=== PATIENT | female | born 1980 | race Two or more races ===

== ENCOUNTER → 2023-12-17 | Outpatient (CLI) | payer BC, SELFPAY ==
[2023-12-17 08:20] LABS: Collection Type, Urine Clean Catch
[2023-12-17 08:50] LABS: Basophils % (Auto) 1 % (0-2.5); Eosinophils # (Auto) 0.1 Thou/mm3 (0.0-0.5); Eosinophils % (Auto) 1 % (0-10); Hematocrit 41.5 % (36.0-46.0); Hemoglobin 14.2 g/dL (12.0-16.0); Immature Granulocytes % (Auto) 0 % (0-0); Immature Granulocytes Auto 0.01 Thou/mm3 (0.00-0.00); Lymphocytes % (Auto) 32 % (10-50); Mean Corpuscular HGB Conc 34.2 g/dl (31.0-37.0); Mean Corpuscular Hemoglobin 31.3 pg (25.0-35.0); Mean Corpuscular Volume 92 fL (80-100); Monocytes # (Auto) 0.4 Thou/mm3 (0.0-0.8); Monocytes % (Auto) 6 % (0-12); Neutrophils # (Auto) 3.7 Thou/mm3 (1.8-7.7); Neutrophils % (Auto) 60 % (37-80); Nucleated Red Blood Cell % 0 /100 WBC (0); Platelet Count 324 Thou/mm3 (140-440); RDW Standard Deviation 41.7 fL (36.4-46.3); Red Blood Count 4.53 Miln/mm3 (4.00-5.20); White Blood Count 6.2 Thou/mm3 (3.6-11.0)
[2023-12-17 09:01] LABS: Bilirubin,Urine Negative (Negative); Blood,Urine Negative (Negative); Clarity,Urine Clear (Clear/Hazy); Color,Urine Lt-Yellow (Lt Yel-Yel); Culture Indicated,Urine Not Indicated; Glucose, Urine Negative (Negative); Ketones,Urine Negative (Negative); Leukocyte Esterase,Urine Negative (Negative); Nitrite,Urine Negative (Negative); PH,Urine 5.5 (5.0-7.0); Protein,Urine Negative (Neg - Trace); RBC,Urine 5 /hpf (0-3); Specific Gravity,Urine 1.026 (1.001-1.035); Squamous Epithelial Cell,Urine 2 /hpf (0-5); Urobilinogen,Urine Negative mg/dL (0.0-1.0); WBC,Urine 1 /hpf (0-5)
[2023-12-17 09:13] LABS: Glucose Estimated Average 137 mg/dL (80-131); Hemoglobin A1C 6.4 % Hgb (4.8-6.0)
[2023-12-17 09:31] LABS: Follicle Stimulating Hormone 3.39 mIU/mL (See Note); Vitamin B12 781 pg/mL (211-911); Vitamin D 25 Hydroxy Total 30.5 ng/mL (7.3-40.2)
[2023-12-17 09:34] LABS: Alanine Aminotransferase 23 U/L (10-49); Albumin, Serum 4.4 gm/dL (3.5-5.0); Albumin/Globulin Ratio 1.6 (1.2-2.2); Alkaline Phosphatase 71 U/L (46-116); Anion Gap 6 (7-16); Aspartate Amino Transferase 15 U/L (0-34); BUN/Creatinine Ratio 16 Ratio (12-20); Bilirubin,Total 0.5 mg/dL (0.3-1.2); Blood Urea Nitrogen 13 mg/dL (9-23); Calcium 8.9 mg/dL (8.3-10.6); Calcium (Corrected) 8.9 mg/dL (8.5-10.1); Carbon Dioxide 27.5 mMol/L (20.0-31.0); Cardiac Risk Estimate 4.3 RATIO (3.7-5.6); Chloride 104 mMol/L (98-107); Cholesterol 209 mg/dL (132-200); Creatinine (Component) 0.8 mg/dL (0.6-1.3); Globulin 2.7 gm/dL (2.3-3.5); Glucose 162 mg/dL (74-106); HDL Cholesterol 49 mg/dL (40-60); LDL Cholesterol,Calculated 132 mg/dL (0-130); Osmolality,Calculated 277 (275-295); Potassium 4.2 mMol/L (3.4-5.1); Sodium 137 mMol/L (136-145); Total Protein 7.1 gm/dL (5.7-8.2); Triglycerides 141 mg/dL (30-150); eGFR > 60 See Note
[2023-12-29 06:43] LABS: Cortisol,total,LC/MS/MS* 10.9 mcg/dL; Estradiol, Ultrasensitive* 124 pg/mL; Progesterone,LC/MS* 9.5 ng/mL
== END | disposition home or self-care (01) ==
LOC: COPL 07:29
PROVIDERS: PCP Registered Nurse; Referring Provider Registered Nurse; Visit Provider Registered Nurse
DX: R79.89 Other specified abnormal findings of blood chemistry (principal); N95.1 Menopausal and female climacteric states; Z83.3 Family history of diabetes mellitus
CPT/HCPCS: 36415; 80053; 80061; 81001; 82306; 82533; 82607; 82670; 83001; 83036; 84144; 84443; 85025

== ENCOUNTER → 2024-05-28 | Outpatient (CLI) | payer BC, MEDICAID, SELFPAY ==
[2024-05-28 08:47] LABS: Glucose Estimated Average 163 mg/dL (80-131); Hemoglobin A1C 7.3 % Hgb (4.8-6.0)
== END | disposition home or self-care (01) ==
LOC: COPL 07:20
PROVIDERS: PCP Family Medicine; Referring Provider Registered Nurse; Visit Provider Registered Nurse
DX: R73.03 Prediabetes (principal)
CPT/HCPCS: 36415; 83036

== ENCOUNTER → 2024-08-03 | Outpatient (CLI) | payer BC, MEDICAID, SELFPAY ==
[2024-08-03 16:26] LABS: Syphilis Nonreactive (Nonreactive)
[2024-08-09 06:48] LABS: HIV Ag/Ab, 4th Gen NON-REACTIVE
== END | disposition home or self-care (01) ==
PROVIDERS: PCP Physician Assistant; Referring Provider Physician Assistant; Visit Provider Physician Assistant
DX: N76.1 Subacute and chronic vaginitis (principal)
CPT/HCPCS: 36415; 86780; 87389; 87491; 87591; 87661

== ENCOUNTER → 2024-08-04 | Outpatient (CLI) | payer BC, MEDICAID, SELFPAY ==
[2024-08-04 14:25] LABS: Chlamydia trachomatis PCR Negative (Not Detect); Neisseria Gonorrhoeae DNA PCR Negative (Not Detect); Trichomonas Negative (Negative)
== END | disposition home or self-care (01) ==
LOC: SLDO 10:11
PROVIDERS: PCP Physician Assistant; Referring Provider Physician Assistant; Visit Provider Physician Assistant
DX: N76.1 Subacute and chronic vaginitis (principal)
CPT/HCPCS: 87491; 87591; 87661

== ENCOUNTER → 2024-11-12 | Outpatient (CLI) | payer BC, MEDICAID, SELFPAY ==
[2024-11-12 16:30] LABS: Basophils # (Auto) 0.0 Thou/mm3 (0.0-0.2); Basophils % (Auto) 0 % (0-2.5); Eosinophils # (Auto) 0.1 Thou/mm3 (0.0-0.5); Eosinophils % (Auto) 1 % (0-10); Hematocrit 41.3 % (36.0-46.0); Hemoglobin 14.0 g/dL (12.0-16.0); Immature Granulocytes Auto 0.02 Thou/mm3 (0.00-0.00); Lymphocytes # (Auto) 2.5 Thou/mm3 (1.0-4.8); Lymphocytes % (Auto) 28 % (10-50); Mean Corpuscular HGB Conc 33.9 g/dl (31.0-37.0); Mean Corpuscular Hemoglobin 31.1 pg (25.0-35.0); Mean Corpuscular Volume 92 fL (80-100); Monocytes # (Auto) 0.5 Thou/mm3 (0.0-0.8); Monocytes % (Auto) 5 % (0-12); Neutrophils # (Auto) 5.7 Thou/mm3 (1.8-7.7); Neutrophils % (Auto) 65 % (37-80); Nucleated Red Blood Cell # 0.00 Thou/mm3 (0.00-0.00); Nucleated Red Blood Cell % 0 /100 WBC (0); Platelet Count 337 Thou/mm3 (140-440); RDW Standard Deviation 41.8 fL (36.4-46.3); Red Blood Count 4.50 Miln/mm3 (4.00-5.20); White Blood Count 8.8 Thou/mm3 (3.6-11.0)
[2024-11-12 16:48] LABS: Urea Breath Test Positive (Negative)
[2024-11-12 16:57] LABS: Alanine Aminotransferase 19 U/L (10-49); Albumin, Serum 4.5 gm/dL (3.5-5.0); Albumin/Globulin Ratio 1.7 (1.2-2.2); Alkaline Phosphatase 61 U/L (46-116); Amylase 54 U/L (30-118); Anion Gap 9 (7-16); Aspartate Amino Transferase 16 U/L (0-34); BUN/Creatinine Ratio 17 Ratio (12-20); Bilirubin,Total 0.6 mg/dL (0.3-1.2); Blood Urea Nitrogen 15 mg/dL (9-23); Calcium 8.9 mg/dL (8.3-10.6); Calcium (Corrected) 8.9 mg/dL (8.5-10.1); Carbon Dioxide 25.6 mMol/L (20.0-31.0); Chloride 103 mMol/L (98-107); Creatinine (Component) 0.9 mg/dL (0.6-1.3); Globulin 2.7 gm/dL (2.3-3.5); Glucose 109 mg/dL (74-106); Lipase 34 U/L (12-53); Osmolality,Calculated 277 (275-295); Potassium 3.8 mMol/L (3.4-5.1); Sodium 138 mMol/L (136-145); Total Protein 7.2 gm/dL (5.7-8.2); eGFR > 60 See Note
[2024-11-18 06:42] LABS: Gamma Glutamyl Transpeptidase* 17 U/L (3-55)
== END | disposition home or self-care (01) ==
PROVIDERS: PCP Student in an Organized Health Care Education/Training Program; Referring Provider Student in an Organized Health Care Education/Training Program; Visit Provider Student in an Organized Health Care Education/Training Program
DX: R14.0 Abdominal distension (gaseous) (principal); R10.9 Unspecified abdominal pain
CPT/HCPCS: 36415; 80053; 82150; 82977; 83013; 83014; 83690; 85025

== ENCOUNTER → 2024-12-14 | Outpatient (CLI) | payer BC, MEDICAID, SELFPAY ==
--- NOTE | 2024-12-14 | XR_ITS ---
EXAMINATION: Thoracic spine 3 views TECHNIQUE: AP lateral: Lateral upper dorsal spine 3 views Date and time: December 14, 2024, 12:40 p.m. INDICATIONS: Mid back pain 1 year. FINDINGS: Adequate alignment thoracic vertebral bodies. No thoracic fracture. Moderate diffuse thoracic disc narrowing IMPRESSION: Moderate diffuse thoracic degenerative disc disease
== END | disposition home or self-care (01) ==
LOC: COPL 11:17 → CDIM 01-03 06:24
PROVIDERS: PCP Family Medicine; Referring Provider Registered Nurse; Visit Provider Registered Nurse
DX: M51.34 Other intervertebral disc degeneration, thoracic region (principal)
CPT/HCPCS: 72072

== ENCOUNTER → 2025-01-10 | Outpatient (CLI) | payer BC, MEDICAID, SELFPAY ==
[2025-01-10 20:31] LABS: Urea Breath Test Negative (Negative)
== END | disposition home or self-care (01) ==
PROVIDERS: PCP Registered Nurse; Referring Provider Registered Nurse; Visit Provider Registered Nurse
DX: Z01.89 Encounter for other specified special examinations (principal); B96.81 Helicobacter pylori [H. pylori] as the cause of diseases classified elsewhere
CPT/HCPCS: 83013; 83014

== ENCOUNTER → 2025-02-08 | Outpatient (CLI) | payer BC, MEDICAID, SELFPAY ==
--- NOTE | 2025-02-08 10:00 | XR_ITS ---
EXAM: Esophagram INDICATION: Dysphagia. DATE: 02/08/2025, 10:52 a.m. Dose: 205.31 mGy Fluoroscopy time: 2.1 minutes PROCEDURE: After discussion of risks and benefits informed consent was obtained. Exam performed with single contrast thin barium. Images obtained in the upright position and in multiple prone, lateral and oblique projections. Contrast passes normally from the oropharynx through the esophagus into the stomach without evidence of delay. No evidence of esophageal masses, strictures, diverticulum or mucosal abnormality. There is a small hiatal hernia. Mild gastroesophageal reflux demonstrated during the exam. IMPRESSION: Hiatal hernia. Mild reflux Otherwise negative exam
--- NOTE | 2025-02-08 10:30 | XR_ITS ---
Examination: Abdomen sonogram, complete Date and time of exam: February 08, 2025, 1009 hours INDICATIONS: Abdominal pain this week. Technique: Multiple real-time grayscale transabdominal sonographic images of the abdomen have been obtained. Findings: Normal gallbladder Normal common bile duct 0.4 cm Pancreatic head 2.9 cm Aorta not enlarged Liver 14.1 cm no liver lesions Normal hepatopetal portal venous flow Patent IVC Right kidney 10.1 cm renal cortex 1.2 cm Left kidney 10.9 cm renal cortex 1.7 cm Mild renal scarring Spleen 10.3 cm IMPRESSION: Normal gallbladder Normal common bile duct Liver normal size no focal liver lesions
== END | disposition home or self-care (01) ==
LOC: SDIM 09:28
PROVIDERS: PCP Family Medicine; Referring Provider Registered Nurse; Visit Provider Registered Nurse
DX: K44.9 Diaphragmatic hernia without obstruction or gangrene (principal)
CPT/HCPCS: 74220; 76700; A4649